=== PATIENT | female | born 1965 | race Caucasian/White ===

== ENCOUNTER 2021-11-03 19:09 | Emergency (ER) | payer MEDICAID ==
[~2021-11-03] VITALS: Ht 175.3 cm; Wt 79.4 kg
[~2021-11-03 19:09] MED LIST: CHANTIX1 MG PO; SYNTHROID112 MCG PO
[2021-11-03] MEDS ORDERED: ADVIL200 M1 PO (19:28)
[2021-11-03] MEDS ORDERED: METFORMIN HCL500 M1 (19:28)
[2021-11-03] MEDS ORDERED: DILAUDID2 MG PO (21:16)
== END 2021-11-03 21:29 | disposition home or self-care (01) ==
LOC: ED 19:09
DX: M16.12 Unilateral primary osteoarthritis, left hip (principal); R73.03 Prediabetes; E03.9 Hypothyroidism, unspecified; Z87.891 Personal history of nicotine dependence; Z88.8 Allergy status to other drugs, medicaments and biological substances; Z91.048 Other nonmedicinal substance allergy status; Z88.5 Allergy status to narcotic agent; Z79.899 Other long term (current) drug therapy
CPT/HCPCS: 36415; 73700; 80048; 85025; 96374; 96375; 99284-25; J1170; J2270; J2405

== ENCOUNTER 2022-07-01 21:33 | Emergency (ER) | payer MEDICAID ==
[~2022-07-01] VITALS: Ht 175.3 cm; Wt 65.8 kg
[~2022-07-01 21:33] MED LIST changes: +ADVIL200 M1 PO; +DILAUDID2 MG PO; +METFORMIN HCL500 M1
[2022-07-01] MEDS ORDERED: NICOTINE LOZENGE4 MG BUCCAL (22:27)
[2022-07-01] MEDS ORDERED: STIOLTO RESPIMAT4 GM INH (22:28)
[2022-07-01] MEDS ORDERED: VENTOLIN HFA18 GM INH (22:29)
== END 2022-07-02 00:51 | disposition home or self-care (01) ==
LOC: ED 21:33
DX: R10.32 Left lower quadrant pain (principal); E03.9 Hypothyroidism, unspecified; F17.200 Nicotine dependence, unspecified, uncomplicated; Z88.8 Allergy status to other drugs, medicaments and biological substances; Z88.5 Allergy status to narcotic agent; Z91.048 Other nonmedicinal substance allergy status; Z79.899 Other long term (current) drug therapy
CPT/HCPCS: 36415; 71045; 74177; 80053; 81001; 83605; 83690; 84443; 85025; 96361; 96375; 99284-25; J2270; J2405; J7121; Q9967

== ENCOUNTER 2023-05-01 19:03 | Emergency (ER) | payer OTHER | END 2023-05-01 22:00 | disposition home or self-care (01) | LOC: ED 19:03 | DX: M62.838 Other muscle spasm (principal); R91.1 Solitary pulmonary nodule; C73 Malignant neoplasm of thyroid gland; E03.9 Hypothyroidism, unspecified; Z88.5 Allergy status to narcotic agent; Z91.048 Other nonmedicinal substance allergy status; Z91.09 Other allergy status, other than to drugs and biological substances; Z79.890 Hormone replacement therapy ==